=== PATIENT | male | born 1940 | race Caucasian/White ===

== ENCOUNTER 2018-12-04 13:24 | Inpatient (IN) ==
[2018-12-04] MEDS ORDERED: MORPHINE SUL Oral CONC 10 MG/0.5 ML ORAL.SYG PO PRN (14:00)
[2018-12-04] MEDS ORDERED: Atropine 1% Opth Drops 100 DROP/5 ML BOTTLE SL PRN (14:00)
[2018-12-04] MEDS ORDERED: Haloperidol Oral Conc 10 MG/5 ML UDC PO PRN (14:00)
[2018-12-04] MEDS ORDERED: Bisacodyl 10 MG RECTAL SUPPOSITORY RC PRN (14:00)
[2018-12-04 17:24] VITALS: BP 135/72
[2018-12-04] MEDS: *HR* FentaNYL (PF) 100 MCG/2 ML VIAL IVP PRN ×2 (20:01→22:48)
--- NOTE | 2018-12-06 09:35 | Pallative History & Physical ---
Date of Encounter: 12/07/18 Time of Encounter: 16:23 Internal Medicine - H&P: HPI Admitted From: Intrahospital Transfer Plans for Post Hospital Care: at Medical Facility History of present illness: Mr. Downey is a 78 year old male with pmh of [place] dementia, [place], presented to the hospital s/p fall on 11/28/18 and was diagnosed with L hip facture. Repair was performed. Hospital stay was complicated by fever on day 1 post surgery. Pt was treated on broad ABX for sepsi from ?aspiration pneumonia. Pt continued to worsen, wih worsening delirium to a point that he is now unable to eat and communicated, as well as worsening respiratory failure, on High flow oxygen through oxymask. He also continued to have elevate WBC count and fever when ABX were de-escalated. Pt had been started on empiric heparin drip for suspicion of PE. CTA performed to r/o PE was not conclusive and LE doppler this morning was preliminary negative for DVT. Palliative care consult for GOC discussion and hospice evaluation. After discussion with palliative care, family decided for comfort care only. Pt admitted to [facility] hospice for management of dyspnea. Pt before being seen. Past Med Surg Social Fam HX - Past Medical History Medical history: dementia, diabetes, hyperlipidemia, hypertension Additional medical history: anemia, unspecific right bundle-branch block Psychiatric history: anxiety, depression - Social History Smoking Status: Never smoker Smokeless Tobacco Status: No Alcohol use: none Drug use: none Internal Medicine - H&P: Meds Acetaminophen [Tylenol] 650 mg PO Q4HR PRN 11/28/18 [History] Acetaminophen [Tylenol 650mg SUPP] 650 mg RC Q4HR PRN supp.rect 12/04/18 [Rx] FentaNYL (PF) 50 mcg IVP Q2H PRN vial 12/04/18 [Rx] Haloperidol Lactate [Haldol] 1 mg IVP Q4HR PRN vial 12/04/18 [Rx] Allergy/AdvReac Type Severity Reaction Status Date / Time amiodarone [From Pacerone] Allergy See Verified 11/27/18 23:38 Comments Palliative Care-Exam - Constitutional Vitals: Temp Pulse Resp BP Pulse Ox 98.3 F 120 48 135/72 83 12/04/18 17:23 12/04/18 17:23 12/04/18 17:23 12/04/18 17:23 12/04/18 17:23 Palliative Quality Palliative Quality: Screen for Code Status: NA, Screen for Goals of Care: NA, Screen for Pain: NA, If Pain Regimen Started, Initiate Bowel Regimen: NA, Screen for Nausea/Vomitting: NA Code Status: 12/04/18 14:00 Resuscitation Status: Active [RES] Routine Comment: Resuscitation Status: DNR-Comfort Care
--- NOTE | 2018-12-07 16:28 | Death Note ---
Discharge Sum: Summary - Date and Time Date of admission: 12/04/18 16:48 Date of : 12/04/18 Time of : 23:08 - Summary Details: Mr. Downey is a 78 year old male with pmh of [place] dementia, [facility], presented to the hospital s/p fall on 11/28/18 and was diagnosed with L hip facture. Repair was performed. Hospital stay was complicated by fever on day 1 post surgery. Pt was treated on broad ABX for sepsi from ?aspiration pneumonia. Pt continued to worsen, wih worsening delirium to a point that he is now unable to eat and communicated, as well as worsening respiratory failure, on High flow oxygen through oxymask. He also continued to have elevate WBC count and fever when ABX were de-escalated. Pt had been started on empiric heparin drip for suspicion of PE. CTA performed to r/o PE was not conclusive and LE doppler this morning was preliminary negative for DVT. Palliative care consult for GOC discussion and hospice evaluation. family decided for GIP admission for pain and dyspnea management, and comfort care. Pt was transitioned to hospice on 12/04/18 and peacefully. - Additional Data Confirmation of as documented by pronouncing clinician: no pulse, no respirations, no heart sounds, pupils fixed and dilated Family: contacted Attending/PCP notified?: No Attending physician: Mireille Gallo MD Was code activated?: No Autopsy requested?: No machine cloth examiner notified?: No Organ bank notified?: Yes Advance directives: Yes Hospice patient?: Yes Discharge Sum: Diag - PCOD Probable Cause of : Respiratory arrest Discharge Sum: Prov - Provider Primary care physician: PCP NONE Admitting clinician: Mireille Gallo Attending physician on admission: Mireille Gallo Consults: 12/04/18 14:00 Consult to Palliative Care [CONS] Routine Comment: Consulting Provider: Palliative Care Ivis Reason for Consult: hospice Call Completed: Yes
== END 2018-12-04 23:08 | disposition expired | DRG 951 ==
LOC: 2ANU 16:48
PROVIDERS: ADMIT Internal Medicine Hospice and Palliative Medicine; ATTEND Internal Medicine Hospice and Palliative Medicine